=== PATIENT | male | born 1970 | race Two or more races ===

== ENCOUNTER 2018-06-27 21:10 | Emergency (ER) | payer MEDICAID ==
[~2018-06-27] VITALS: Ht 172.7 cm; Wt 108.0 kg
[~2018-06-27 21:10] MED LIST: IBUPROFEN600 M1 PO; NKM; NORCO 5-325 TA1 EACH ORAL
[2018-06-27] MEDS ORDERED: Norco 5mg/325mg tab ORAL ONE (21:30)
--- NOTE | 2018-06-27 21:39 | Emergency Room Report ---
History of Present Illness General Chief Complaint: Lower Extremity Injury Source: Patient Present Illness HPI Is a 47-year-old male with no past medical history. He was working on a ladder and he slipped and fell. Somehow his left leg got caught in between the ladder. He complaining of left leg pain. No head injury. Did not pass out. Pain is 8 out of 10. Worse with bearing weight. No fever chills but no nausea no vomiting. No deformity. Allergies: Coded Allergies: No Known Allergies (Unverified , 07/03/14) Patient History Past Medical History: see triage record, old chart reviewed Past Surgical History: none Pertinent Family History: none Social History: Denies: smoking Immunizations: other Reviewed Nursing Documentation: PMH: Agreed; PSxH: Agreed Nursing Documentation-PMH Past Medical History: No Stated History Review of Systems Eye: Denies: eye pain, blurred vision ENT: Denies: ear pain, nose congestion, throat swelling Respiratory: Denies: cough, shortness of breath Cardiovascular: Denies: chest pain, palpitations Gastrointestinal: Denies: abdominal pain, diarrhea, nausea, vomiting Musculoskeletal: Reports: joint pain, muscle pain, muscle stiffness; Denies: back pain Skin: Denies: rash Neurological: Denies: headache, numbness Endocrine: Denies: increased thirst, increased urine Hematologic/Lymphatic: Denies: easy bruising All Other Systems: negative except mentioned in HPI Physical Exam Vital Signs Date Time Temp Pulse Resp B/P (MAP) Pulse Ox O2 Delivery O2 Flow Rate FiO2 06/27/18 21:16 98.9 86 16 143/75 95 Room Air 99.0 vitals unremarkable Sp02 EP Interpretation: reviewed, normal General Appearance: well appearing, no apparent distress, alert Head: normocephalic, atraumatic Eyes: bilateral eye PERRL, bilateral eye EOMI ENT: hearing grossly normal, normal pharynx Neck: full range of motion, supple, no meningismus Respiratory: chest non-tender, lungs clear, normal breath sounds Cardiovascular #1: regular rate, rhythm, no murmur Gastrointestinal: normal bowel sounds, non tender, no mass, no organomegaly, no bruit, non-distended Musculoskeletal: back normal, normal range of motion, other - Left lower leg: He has abrasion to the proximal tibia area and ankle area. He has tenderness over the mid tibia. No deformity. Pulses normal. Ankle stable. Knee stable. Psychiatric: mood/affect normal Skin: warm/dry Medical Decision Making Diagnostic Impression: Primary Impression: Contusion of left lower leg, initial encounter ER Course Patient with contusion and abrasion to the lower leg from a fall. No fracture. There is some calcified fragment in the soft tissue. There is no break in the skin or evidence of a foreign body. This appeared to be old. We'll discharge home. Other X-Ray Diagnostic Results Other X-Ray Diagnostic Results : X-Ray ordered: left tib-fib x-rays # of Views/Limited Vs Complete: 2 View Indication: Pain EP Interpretation: Yes Interpretation: no dislocation, no soft tissue swelling, no fractures Impression: No acute disease Electronically Signed by: Ryan Mendenhall MD Last Vital Signs Date Time Temp Pulse Resp B/P (MAP) Pulse Ox O2 Delivery O2 Flow Rate FiO2 06/27/18 21:37 98.9 06/27/18 21:16 86 16 143/75 95 Room Air Status: improved Disposition: HOME, SELF-CARE Condition: Stable Scripts Ibuprofen* (MOTRIN*) 600 Mg Tablet 600 MG ORAL THREE TIMES A DAY, #30 TAB 0 Refills Prov: Ryan Mendenhall MD 06/27/18 Additional Instructions: Follow-up with your doctor in 7 days. Ice pack to the area. Return if worse. Ryan Mendenhall MD Jun 27, 2018 21:39
[2018-06-27] MEDS ORDERED: IBUPROFEN600 MG ORAL (21:50)
[2018-06-27 22:04] VITALS: BP 143/75
--- NOTE | 2018-06-28 11:43 | Diagnostic Imaging Report ---
Indication: left leg pain Comparison: None Findings: Two views of the left tibia and fibula were obtained. No acute fracture, malalignment, or periosteal reaction are identified. Soft tissues are unremarkable. Impression: No acute injury.
== END 2018-06-27 22:45 | disposition home or self-care (01) ==
LOC: EMR 22:42
DX: S80.12XA Contusion of left lower leg, initial encounter (principal); W11.XXXA Fall on and from ladder, initial encounter; Y92.9 Unspecified place or not applicable
CPT/HCPCS: 99283

== ENCOUNTER 2020-11-02 13:06 | Emergency (ER) | payer MEDICAID ==
[~2020-11-02] VITALS: Ht 165.1 cm; Wt 99.8 kg
[~2020-11-02 13:06] MED LIST changes: +IBUPROFEN600 MG ORAL
--- NOTE | 2020-11-02 13:28 | Emergency Room Report ---
History of Present Illness General Chief Complaint: Diarrhea Source: Patient Present Illness HPI Disclaimer: Please note that this report is being documented using DRAGON technology. This can lead to erroneous entry secondary to incorrect interpretation by the dictating instrument. HPI: 47-year-old male presents for evaluation of abdominal pain vomiting and fatigue. Diagnosed with COVID-19 11 days ago. Has been taking vitamin C, other vitamin supplements, finished a course of antibiotics. He reports persistent cough and low-grade fevers. Took Tylenol prior to arrival. Reports voluminous diarrhea and vomiting. Unable to eat. Feels globally weak. Denies chest pain or palpitations. PMH: Reviewed PSH: Reviewed Allergies: Reviewed Social Hx: Reviewed Allergies: Coded Allergies: No Known Allergies (Unverified , 07/03/14) Review of Systems All Other Systems: negative except mentioned in HPI Physical Exam General: Awake and alert, low-grade fever HEENT: NC/AT. EOMI. dry mucous membranes Cardiovascular: RRR. S1 and S2 normal. No murmur appreciated Resp: Normal work of breathing. No cough, wheezing or crackles appreciated Abdomen: Abdomen is soft, nondistended. Nontender Skin: Intact. No abrasions, laceration or rash over the exposed skin MSK: Normal tone and bulk. Moving all extremities. No obvious deformity. Neuro: Awake and alert. Mentating appropriately. Medical Decision Making Diagnostic Impression: Primary Impression: COVID-19 ER Course 49-year-old male presents for evaluation of vomiting and diarrhea. Tested positive for COVID-19 11 days ago. Differential includes is not limited to dehydration, electrolyte abnormality, renal dysfunction, pancreatitis, gastritis, gastroenteritis, viral syndrome, food poisoning, symptoms of COVID-19 among others. Chest x-ray shows fluffy infiltrates consistent with COVID-19 infection viral pneumonia. Possible consolidation right lower lobe. Will start on azithromycin and give Decadron. Labs returned within normal limits. Urinalysis is pending. He feels somewhat improved after receiving IV fluids and analgesics. His main discomfort is chest wall pain with coughing. No hypoxia in the ER. Normal respiratory rate. Fever improved. Patient stable for outpatient follow-up. Will continue antibiotics on outpatient basis. Instructed to return with new or worsening symptoms. He understands and agrees with this treatment plan. Laboratory Tests Test 11/02/20 13:19 White Blood Count 8.5 K/UL (4.8-10.8) Red Blood Count 5.22 M/UL (4.70-6.10) Hemoglobin 14.8 G/DL (14.2-18.0) Hematocrit 45.2 % (42.0-52.0) Mean Corpuscular Volume 87 FL (80-99) Mean Corpuscular Hemoglobin 28.3 PG (27.0-31.0) Mean Corpuscular Hemoglobin Concent 32.7 G/DL (32.0-36.0) Red Cell Distribution Width 11.6 % (11.6-14.8) Platelet Count 288 K/UL (150-450) Mean Platelet Volume 7.3 FL (6.5-10.1) Neutrophils (%) (Auto) 76.9 % (45.0-75.0) H Lymphocytes (%) (Auto) 14.7 % (20.0-45.0) L Monocytes (%) (Auto) 7.4 % (1.0-10.0) Eosinophils (%) (Auto) 0.7 % (0.0-3.0) Basophils (%) (Auto) 0.3 % (0.0-2.0) Sodium Level 136 MMOL/L (136-145) Potassium Level 3.9 MMOL/L (3.5-5.1) Chloride Level 99 MMOL/L (98-107) Carbon Dioxide Level 27 MMOL/L (21-32) Anion Gap 10 mmol/L (5-15) Blood Urea Nitrogen 14 mg/dL (7-18) Creatinine 1.0 MG/DL (0.55-1.30) Estimated Glomerular Filtration Rate > 60 mL/min (>60) Glucose Level 134 MG/DL (74-106) H Calcium Level 9.0 MG/DL (8.5-10.1) Total Bilirubin 0.6 MG/DL (0.2-1.0) Aspartate Amino Transferase (AST) 45 U/L (15-37) H Alanine Aminotransferase (ALT) 46 U/L (12-78) Alkaline Phosphatase 57 U/L (46-116) Total Protein 8.3 G/DL (6.4-8.2) H Albumin 2.7 G/DL (3.4-5.0) L Globulin 5.6 g/dL Albumin/Globulin Ratio 0.5 (1.0-2.7) L Lipase 156 U/L (73-393) Chest X-Ray Diagnostic Results Chest X-Ray Diagnostic Results : Chest X-Ray Ordered: Yes # of Views/Limited/Complete: 1 View Indication: Shortness of Breath EP Interpretation: Yes Interpretation: no effusion, no pneumothorax, other - Bilateral hazy opacities Impression: Other - Bilateral hazy opacities consistent with COVID-19 infection Electronically Signed by: Electronically signed by Dr. Franklyn Crowe MD Reevaluation Impression Last Vital Signs Date Time Temp Pulse Resp B/P (MAP) Pulse Ox O2 Delivery O2 Flow Rate FiO2 11/02/20 15:30 98.6 69 19 126/72 99 Room Air 11/02/20 14:31 94 Disposition: HOME, SELF-CARE Condition: Stable Scripts Azithromycin* (ZITHROMAX*) 250 Mg Tablet 250 MG ORAL DAILY for 4 Days, TAB Prov: Franklyn Crowe MD 11/02/20 Franklyn Crowe MD Nov 02, 2020 13:28
[2020-11-02 13:44] LABS: BASOPHILS % (AUTO) 0.3 % (0.0-2.0); EOSINOPHILS % (AUTO) 0.7 % (0.0-3.0); HEMATOCRIT 45.2 % (42.0-52.0); HEMOGLOBIN 14.8 G/DL (14.2-18.0); LYMPHOCYTES % (AUTO) 14.7 % (20.0-45.0); MEAN CORPUSCULAR VOLUME 87 FL (80-99); MONOCYTES % (AUTO) 7.4 % (1.0-10.0); NEUTROPHILS % (AUTO) 76.9 % (45.0-75.0); PLATELET COUNT 288 K/UL (150-450); RED BLOOD COUNT 5.22 M/UL (4.70-6.10); RED CELL DISTRIBUTION WIDTH 11.6 % (11.6-14.8); WHITE BLOOD COUNT 8.5 K/UL (4.8-10.8)
[2020-11-02 13:57] LABS: ANION GAP 10 mmol/L (5-15); BLOOD UREA NITROGEN 14 mg/dL (7-18); CARBON DIOXIDE 27 MMOL/L (21-32); CHLORIDE 99 MMOL/L (98-107); POTASSIUM 3.9 MMOL/L (3.5-5.1); SODIUM 136 MMOL/L (136-145)
[2020-11-02 14:01] LABS: ALANINE AMINOTRANSFERASE 46 U/L (12-78); ALBUMIN 2.7 G/DL (3.4-5.0); ALBUMIN/GLOBULIN RATIO 0.5 (1.0-2.7); ALKALINE PHOSPHATASE 57 U/L (46-116); ASPARTATE AMINO TRANSFERASE 45 U/L (15-37); BILIRUBIN,TOTAL 0.6 MG/DL (0.2-1.0)
[2020-11-02] MEDS ORDERED: ZITHROMAX250 MG ORAL (14:27)
[2020-11-02] MEDS ORDERED: Azithromycin 250mg tab ORAL ONE (14:30)
[2020-11-02] MEDS ORDERED: dexAMETHasone 10mg/ml Inj IV ONE (14:30)
[2020-11-02 14:42] VITALS: BP 111/64
[2020-11-02 14:54] LABS: APPEARANCE,URINE CLEAR; BILIRUBIN, URINE NEGATIVE (NEGATIVE); GLUCOSE, URINE (UA) NEGATIVE (NEGATIVE); KETONES,URINE 1+ (NEGATIVE); LEUKOCYTE ESTERASE ,URINE 1+ (NEGATIVE); NITRITE,URINE NEGATIVE (NEGATIVE); PH,URINE 5 (4.5-8.0); PROTEIN,URINE 2+ (NEGATIVE); UROBILINOGEN,URINE 1 MG/DL (0.0-1.0)
[2020-11-02 15:05] LABS: COLOR,URINE YELLOW
[2020-11-02 15:30] VITALS: BP 126/72
--- NOTE | 2020-11-02 21:54 | Diagnostic Imaging Report ---
Indication: Cough Technique: One view of the chest Comparison: none Findings: There are bilateral right greater than left infiltrates in a peribronchovascular distribution. The heart is borderline enlarged. The pleural spaces are clear. Impression: Bilateral infiltrates, likely multifocal pneumonia, likely viral
== END 2020-11-02 15:30 | disposition home or self-care (01) ==
LOC: EMR 13:51
DX: U07.1 COVID-19 (principal)
CPT/HCPCS: 36415; 71045; 80053; 81003; 83690; 85025; 96361; 96374; 96375; J2405; J7030; Q0144; Z7502; 99284